=== PATIENT | male | born 2005 | race Caucasian/White ===

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

== ENCOUNTER 2025-01-18 18:59 | Emergency (ER) | payer OTHER ==
[~2025-01-18 18:59] MED LIST changes: +ARIPIPRAZOLE10 MG PO; +HYDROXYZINE PAM25 M1 PO
== END 2025-01-18 19:59 | disposition left against medical advice (07) ==
LOC: ED 18:59
DX: J00 Acute nasopharyngitis [common cold] (principal); Z53.21 Procedure and treatment not carried out due to patient leaving prior to being seen by health care provider

== ENCOUNTER 2025-03-19 01:04 | Emergency (ER) | payer OTHER ==
[~2025-03-19] VITALS: Ht 170.1 cm; Wt 97.5 kg
[2025-03-19] MEDS ORDERED: LORazepam 1 MG TAB PO ONE (01:20)
[2025-03-19 01:35] LABS: BASO # 0.1 10*3/uL (0.0-0.1); BASO % 0.7 % (0.0-1.0); EOS # 0.2 10*3/uL (0.0-0.4); EOS % 2.3 % (1.0-4.0); MEAN CELL VOLUME 89.9 fl (80.0-94.0); MEAN CORPUSCULAR HGB 30.0 pg (27.0-31.0); MEAN PLATELET VOLUME 9.1 fl (9.6-12.3); MONO # 0.5 10*3/uL (0.1-1.0); MONO % 6.6 % (3.0-9.0); NEUT # 4.5 10*3/uL (2.3-7.9); NEUT % 66.2 % (47.0-73.0); NUCLEATED RED BLOOD CELL 0.0 % (0.0-0.0); NUCLEATED RED BLOOD CELL 0.0 10*3/uL (0.0-0.0); PLATELET COUNT AUTOMATED 254 10*3/uL (130-400); RED CELL DISTRI WIDTH 12.1 % (0-14.5)
[2025-03-19 01:46] LABS: ACT PARTIAL THROMBO TIME 26.6 SECONDS (20.0-32.1)
[2025-03-19 01:55] LABS: BILIRUBIN Negative (Negative); BLOOD Negative (Negative); CLARITY Cloudy (Clear); COLOR Yellow (Yellow); KETONE Negative (Negative); LEUKO ESTERASE Negative (Negative); NITRITE Negative (Negative); PH 7.0 (4.5-8.0); SPECIFIC GRAVITY 1.015 (1.001-1.030); UROBILINOGEN 1.0 E.U./dl (0.0-1.0)
[2025-03-19 02:02] LABS: URINE AMPHETAMINES Negative (1000ng/ml); URINE BARBITURATES Negative (200ng/ml); URINE BENZODIAZEPINES Negative (200ng/ml); URINE CANNABINOIDS (THC) Negative (50ng/ml); URINE COCAINE Negative (300ng/ml); URINE METHADONE Negative (300ng/ml); URINE OPIATES Negative (300ng/ml); URINE PHENCYCLIDINE Negative (25ng/ml)
[2025-03-19 02:14] LABS: BUN 7 mg/dl (9-23); CPK 139 U/L (34-171); SGPT/ALT 40 U/L (5-49)
[2025-03-19 02:26] LABS: BACTERIA 2+; WBC 0-2 wbc/hpf (0-5)
[2025-03-19 02:28] LABS: ETHYL ALCOHOL < 3.0 mg/dl (<3)
== END 2025-03-19 09:32 | disposition home or self-care (01) ==
LOC: ED 01:04
PROVIDERS: Internal Medicine
DX: F31.9 Bipolar disorder, unspecified (principal); Z91.030 Bee allergy status; Z88.8 Allergy status to other drugs, medicaments and biological substances